=== PATIENT | female | born 1945 | race Caucasian/White ===

== ENCOUNTER → 2017-03-18 | Outpatient (CLI) | payer OTHER ==
[~2017-03-18] MED LIST: ELAVIL 50 MG TA50 MG PO; ELIQUIS2.5 MG PO; FOLIC ACID1 MG PO; GABAPENTIN800 MG PO; HYDROCODON-ACE1 EAC6 PO; LIORESAL TAB 1010 MG PO; METHOTREXATE T2.5 MG PO; METOPROLOL TART50 MG PO; OXYCODONE HCL10 MG PO; PREVACID15 MG PO
[2017-03-18 11:23] LABS: HEMOGLOBIN 12.5 gm/dl (12.3-15.3); RED BLOOD COUNT 3.83 M/UL (4.00-5.10); WHITE BLOOD COUNT 4.7 K/UL (4.5-11.0)
[2017-03-18 11:51] LABS: BUN/CREATININE RATIO 32 (0-10)
== END ==
LOC: OPSV2 09:30
PROVIDERS: Orthopaedic Surgery
DX: Z01.810 Encounter for preprocedural cardiovascular examination (principal); Z01.812 Encounter for preprocedural laboratory examination; M16.12 Unilateral primary osteoarthritis, left hip
CPT/HCPCS: 36415; 80048; 81001; 85025; 87081; 93005

== ENCOUNTER → 2020-12-08 | Outpatient (CLI) | payer OTHER ==
[~2020-12-08] MED LIST changes: +LASIX40 MG PO; +NEURONTIN 100100 MG PO; +NORCO 10-325 T1 EACH PO; +PROTONIX40 MG PO
== END ==
LOC: US 11-28 08:30 → KOH-I 08:56
DX: R10.9 Unspecified abdominal pain (principal); K76.0 Fatty (change of) liver, not elsewhere classified; K83.8 Other specified diseases of biliary tract; Z90.49 Acquired absence of other specified parts of digestive tract
CPT/HCPCS: 76700